=== PATIENT | male | born 1935 | race Caucasian/White ===

== ENCOUNTER → 2017-10-17 | Outpatient (CLI) | payer MEDICARE, BC ==
[2017-10-17 09:50] LABS: CALCIUM 8.5 mg/dL (8.5-10.1); CREATININE 1.6 mg/dL (0.6-1.3); POTASSIUM 4.1 mmol/L (3.5-5.1)
== END ==
LOC: M.LAB 06:21
PROVIDERS: Anesthesiology
DX: Z01.812 Encounter for preprocedural laboratory examination (principal)

== ENCOUNTER → 2017-12-13 | Outpatient (CLI) | payer MEDICARE, BC | LOC: M.RAD 11:27 | DX: M19.041 Primary osteoarthritis, right hand (principal); N18.9 Chronic kidney disease, unspecified ==

== ENCOUNTER → 2018-03-15 | Outpatient (CLI) | payer MEDICARE, BC | LOC: M.RAD 11:31 | DX: R07.9 Chest pain, unspecified (principal); R09.1 Pleurisy ==

== ENCOUNTER → 2019-07-18 | Outpatient (CLI) | payer MEDICARE, BC | LOC: M.RAD 16:00 | DX: M19.042 Primary osteoarthritis, left hand (principal) ==

== ENCOUNTER 2021-01-25 17:33 | Emergency (ER) | payer MEDICARE, BC ==
[~2021-01-25] VITALS: Ht 165.1 cm; Wt 68.0 kg
[2021-01-25] MEDS ORDERED: HYDRALAZINE 2525 MG PO (17:53)
[2021-01-25] MEDS ORDERED: LIPITOR 20 MG T20 M1 PO (17:54)
[2021-01-25] MEDS ORDERED: FLOMAX0.4 MG PO (17:54)
[2021-01-25] MEDS ORDERED: OMEPRAZOLE40 MG PO (17:57)
[2021-01-25] MEDS ORDERED: CIALIS20 MG PO (17:57)
[2021-01-25] MEDS ORDERED: PREDNISONE 2.52.5 M1 PO (17:57)
[2021-01-25] MEDS ORDERED: PROSCAR 5MG TABL5 MG PO (17:57)
[2021-01-25] MEDS ORDERED: IRON325 M1 PO (17:58)
[2021-01-25] MEDS ORDERED: METHOTREXATE 22.5 M1 PO (17:58)
[2021-01-25] MEDS ORDERED: ROCALTROL0.25 MCG PO (17:58)
[2021-01-25] MEDS ORDERED: FOLIC ACID1 MG PO (17:58)
[2021-01-25] MEDS ORDERED: PRESERVISION A1 EACH PO (17:59)
[2021-01-25 18:17] LABS: URINE BILIRUBIN NEGATIVE (Negative); URINE BLOOD 2+ (Negative); URINE CLARITY CLEAR; URINE COLOR YELLOW; URINE GLUCOSE-RANDOM NEGATIVE (Negative); URINE KETONES NEGATIVE (Negative); URINE LEUKOCYTES-REFLEX TRACE (Negative); URINE NITRITE-REFLEX POSITIVE (Negative); URINE PROTEIN 1+ (Negative); URINE SPECIFIC GRAVITY 1.025 (1.005-1.030); URINE UROBILINOGEN 0.2 E.U./dl (0.2-1.0)
[2021-01-25] MEDS ORDERED: LEVAQUIN 500 M500 MG PO (18:20)
[2021-01-25 18:24] LABS: MUCUS None Seen strn/LPF (None Seen); SQUAMOUS 0-3 Few /LPF (0-3)
[2021-01-25 18:25] LABS: BACTERIA-REFLEX >30 Many /HPF (None Seen); URINE RBC 0-2 Rare /HPF (0-2); URINE WBC-REFLEX 6-15 Few /HPF (0-5)
[2021-01-25 18:26] LABS: CRYSTALS None Seen /LPF (None Seen); HYALINE CASTS 0-3 Few /LPF (None Seen)
[2021-01-25 19:45] VITALS: BP 145/79
== END 2021-01-25 19:45 | disposition home or self-care (01) ==
LOC: M.ERS 17:33
PROVIDERS: Nurse Practitioner Family
DX: R33.9 Retention of urine, unspecified (principal); Z79.899 Other long term (current) drug therapy

== ENCOUNTER → 2021-01-26 | Outpatient (CLI) | payer MEDICARE, BC ==
[~2021-01-26] MED LIST: CIALIS20 MG PO; FLOMAX0.4 MG PO; FOLIC ACID1 MG PO; HYDRALAZINE 2525 MG PO; IRON325 M1 PO; LEVAQUIN 500 M500 MG PO; LIPITOR 20 MG T20 M1 PO; METHOTREXATE 22.5 M1 PO; OMEPRAZOLE40 MG PO; PREDNISONE 2.52.5 M1 PO; PRESERVISION A1 EACH PO; PROSCAR 5MG TABL5 MG PO; ROCALTROL0.25 MCG PO
== END ==
LOC: M.CT 14:02
PROVIDERS: ATTEND Internal Medicine
DX: K44.9 Diaphragmatic hernia without obstruction or gangrene (principal); K63.89 Other specified diseases of intestine; K57.30 Diverticulosis of large intestine without perforation or abscess without bleeding; N40.0 Benign prostatic hyperplasia without lower urinary tract symptoms; I70.0 Atherosclerosis of aorta

== ENCOUNTER 2021-01-27 18:54 | Emergency (ER) | payer MEDICARE, BC ==
[~2021-01-27] VITALS: Ht 165.1 cm; Wt 70.3 kg
[2021-01-27 20:27] LABS: URINE BILIRUBIN NEGATIVE (Negative); URINE BLOOD 1+ (Negative); URINE CLARITY CLEAR; URINE COLOR DARK YELLOW; URINE GLUCOSE-RANDOM NEGATIVE (Negative); URINE KETONES NEGATIVE (Negative); URINE LEUKOCYTES-REFLEX TRACE (Negative); URINE NITRITE-REFLEX NEGATIVE (Negative); URINE PROTEIN 2+ (Negative); URINE SPECIFIC GRAVITY 1.025 (1.005-1.030); URINE UROBILINOGEN 0.2 E.U./dl (0.2-1.0)
[2021-01-27 20:34] LABS: HYALINE CASTS 4-10 Moderate /LPF (None Seen); URINE RBC 3-10 Few /HPF (0-2)
[2021-01-27 20:35] LABS: BACTERIA-REFLEX 1-9 Few /HPF (None Seen); CRYSTALS None Seen /LPF (None Seen); MUCUS None Seen strn/LPF (None Seen); SQUAMOUS NONE SEEN /LPF (0-3); URINE WBC-REFLEX 0-5 Rare /HPF (0-5)
[2021-01-27 20:58] VITALS: BP 132/70
== END 2021-01-27 20:59 | disposition home or self-care (01) ==
LOC: M.ERS 18:54
PROVIDERS: Emergency Medicine
DX: T83.098A Other mechanical complication of other urinary catheter, initial encounter (principal); I10 Essential (primary) hypertension; E78.00 Pure hypercholesterolemia, unspecified; Z79.899 Other long term (current) drug therapy; Y84.8 Other medical procedures as the cause of abnormal reaction of the patient, or of later complication, without mention of misadventure at the time of the procedure; Y92.89 Other specified places as the place of occurrence of the external cause